=== PATIENT | male | born 1985 | race Caucasian/White ===

== ENCOUNTER 2016-09-02 14:11 | Emergency (ER) | payer SELFPAY ==
[2016-09-02 14:18] VITALS: BP 166/83; PULSE 108; TEMP 98.1; BMI 25.0
--- NOTE | 2016-09-02 15:06 | EDPRACDOC ---
- General Information Chief Complaint: Foot Pain Stated Complaint: HEEL PAIN Time Seen by Provider: 09/02/16 14:26 Information Source: Patient Mode of Arrival: Car Home Medications: Home Medications Gabapentin [Neurontin] 300 mg PO BID #10 capsule 04/09/16 Aripiprazole [Abilify] 30 mg PO DAILY 09/02/16 Lamotrigine [Lamictal] 100 mg PO DAILY 09/02/16 Meloxicam [Mobic] 7.5 mg PO BID #20 tab 09/02/16 Allergies/Adverse Reactions: Allergies Allergy/AdvReac Type Severity Reaction Status Date / Time No Known Allergies Allergy Verified 09/02/16 14:38 - History of Present Illness Onset: 3 days HPI: PT PRESENTS TODAY WITH LEFT HEEL PAIN X 3 DAYS. UNKNOWN INJURY. DENIES FEVER, RASH, GOUT HISTORY. STATES PAIN RADIATES UP HIS LEG. PT CONCERNED HE "MIGHT BE DIABETIC BECAUSE I GOOGLED IT AND I'M RETAINING FLUIDS". NO OTHER COMPLAINTS. Foot Problem Location: Reports: Left, Heel Mechanism: Reports: None Circumstances: Reports: None Able to Bear Weight: Fully Pain Severity: Reports: Moderate Associated Signs & Symptoms: Reports: None ED Past Medical History - History Reviewed Yes Nurses notes reviewed and agree except as marked - Patient Medical History Psychological History: Reports: Depression, Anxiety - Social Medical History Smoking Status: Heavy tobacco smoker (5 or more cigarettes/day or daily pipe/ cigar) EDM Review of Systems - Review of Systems ROS Negative Except as Marked: Yes All systems reviewed and were negative except as marked Constitutional: No Symptoms Reported Respiratory: No Symptoms Reported Cardiovascular: No Symptoms Reported Gastrointestinal: No Symptoms Reported Neurological: No Symptoms Reported Musculoskeletal: Foot Integumentary: No Symptoms Reported - Physical Exam Constitutional: Alert (Awake), No apparent distress Oriented to: Time, Person, Place Last recorded Vital Signs: Last Vital Signs Temp 98.1 F 09/02/16 14:16 Pulse 108 09/02/16 14:16 Resp 20 09/02/16 14:16 BP 166/83 09/02/16 14:16 Pulse Ox 97 09/02/16 14:16 Oxygen Pulse Oxygen Saturation 97 O2 Device Oxygen Flow Rate Fraction of Inspired Oxygen ( FIO2) - HEENT Head: Normal Eye Exam: Normal Neck: Normal, Denies Pain, Midline - Respiratory/Cardiovascular Respiratory: Normal - CTA Cardiovascular: Normal - GI Palpation: Normal Tenderness: Non tender - Musculoskeletal Back: Normal Extremities: Other (DENIES TTP TO LEFT HEEL; STATES ONLY PAIN WHEN WALKING; NO SWELLING/ERYTHEMA/BRUISING/DEFORMITY NOTED; PEDAL PULSES NORMAL) - Integumentary Skin: Normal Lymphatics: Normal - Neurologic Cerebellar: Normal Mood Description: Normal Thought: Coherent Perception: Normal ED Foot Problem Phys Exam - Musculoskeletal Foot: Normal Ankle: Normal Achilles Tendon: Normal Nail: Normal Nailbed: Normal Soft Tissue: Normal Digit: Normal Digit Strength: Normal Distal Function/Circulation: Normal - Integumentary Skin: Normal Lymphatics: Normal - Results POC Capillary Glucose 191 mg/dL (70-99) H 09/02/16 14:35 Lab Results 09/02/16 14:35 POC Capillary Glucose 191 H Decision Time to Discharge: 15:17 - Departure Disposition: Home Condition: Good Final Diagnosis: Elevated blood sugar Heel pain Qualifiers: Laterality: left Qualified Code(s): M79.672 - Pain in left foot Instructions: RICE Therapy (ED) Education/Counseling Given To: Patient Education/Counseling Given Regarding: Diagnosis, Treatment, Follow Up Referrals: None,No Provider [Primary Care Provider] - One Week Paco Longoria DPM [Staff Physician] - One Week Prescriptions: New Meloxicam [Mobic] 7.5 mg PO BID #20 tab No Action Gabapentin [Neurontin] 300 mg PO BID #10 capsule Lamotrigine [Lamictal] 100 mg PO DAILY Aripiprazole [Abilify] 30 mg PO DAILY Additional Instructions: PLEASE ESTABLISH A PRIMARY CARE PROVIDER TO PROPERLY EVALUATE YOUR BLOOD SUGAR. FOLLOW UP WITH PODIATRY IF HEEL PAIN DOES NOT RESOLVE WITH TODAYS MEDICATIONS.
--- NOTE | 2016-09-02 15:14 | DIRPT ---
CLINICAL DATA: Left heel pain for 3 days. No specific injury. EXAM: LEFT OS CALCIS - 2+ VIEW COMPARISON: None. FINDINGS: There is no evidence of fracture or other focal bone lesions. Soft tissues are unremarkable. IMPRESSION: Negative. Electronically Signed By: Jhonatan Gill M.D. On: 09/02/2016 15:12
[2016-09-02] MEDS ORDERED: MELOXICAM 7.5 MG TAB PO ONE (15:26)
== END 2016-09-02 15:35 | disposition home or self-care (01) ==
LOC: ED 14:11
DX: M79.672 Pain in left foot (principal); R73.9 Hyperglycemia, unspecified; F17.200 Nicotine dependence, unspecified, uncomplicated
CPT/HCPCS: 73650; 82962; 99282; J3490